=== PATIENT | female | born 1975 | race Caucasian/White ===

== ENCOUNTER 2025-02-05 08:56 | Outpatient (REF) | payer BC, SELFPAY ==
--- NOTE | 2025-02-05 | EEG_ITS ---
This is a 16 channel EEG with an EKG lead. Patient is reported awake during the tracing. Background EEG rhythm is low amplitude fast with no obvious asymmetry or paroxysmal tendency. Photic stimulation does not produce any significant abnormality. Hyperventilation is unremarkable. No sharp wave spikes or paroxysmal tendency noted. Cardiac lead does not reveal any significant abnormality. Impression: Unremarkable EEG. [facility]
--- OUTSIDE RECORDS SUMMARY | 2025-02-05 09:08 | XMS_ITS | Encounter Summary ---
Author Organization [facility] Address [address] [place] [address] Care Team Providers Care Cook Dessert Name Role Phone Jose Reed MD Primary Care Provider Torie lomeli Encounter Details Date Type Department Care Team (Latest Contact Info) Description 08/21/[address] [facility] [address] [place] [address] [address] [place] [address] Gregorio Brandon MD [address] [place], [place] [id number] Encounter for laboratory testing for COVID-19 virus Social History Tobacco Use Types Packs/Day Years Used Date Smoking Tobacco: Never Smokeless Tobacco: Never Alcohol Use Standard Drinks/Week Comments Yes 0 (1 standard drink = 0.6 oz pur e alcohol) Occasional Comments No Sex and Gender Information Value Date Recorded Sex Assigned at Not on file Legal Sex Female 2:49 PM EST Gender Identity Not on file Sexual Orientation Not on file documented as of this encounter Plan of Treatment Not on file documented as of this encounter Procedures Procedure Name Priority Date/Time Associated Diagnosis Comments COVID-19 (SARS-COV-2) - SEMA4 LAB Routine 08/21/2020 12:38 PM EST Encounter for laboratory testing for COVID-19 virus [ICD-10-CM] documented in this encounter Results * COVID-19 (SARS-COV-2) (SEMA4) (08/21/2020 12:38 PM EST) COVID-19 RT-PCR NOT-DETEC PJ Not-Detec pj 08/22/2020 4:51 PM EST [facility] Comment:Interpretation: The viral RNA was not detected, making the COVID-19 diagnosis less likely. Clinical correlation is highly recommended.Final report signed by Navarro Rojas, Ph.D., Laboratory DirectorTests performed at [facility] Nasopharyngeal swab / Unknown 08/21/2020 12:38 PM EST 08/21/2020 12:38 PM EST Narrative [facility] - 08/22/2020 4:51 PM EST Performed by [facility] [address] [place] [address], CLIA# [id number] and [place] License# [id number] us Gregorio Brandon MD MICROBIOLOGY - GENERAL ORDER BELLE Final Result [facility] documented in this encounter Visit Diagnoses Diagnosis Encounter for laboratory testing for COVID-19 virus documented in this encounter Care Teams Cook Dessert Relationship Specialty Start Date End Date Jose Reed MD PCP - General 07/01/19 documented as of this encounter
--- OUTSIDE RECORDS SUMMARY | 2025-02-05 09:09 | XMS_ITS | Data Portability ---
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 Plan of Treatment Reminders Order Date Submit Date Provider Last Modified By Organization Details Last Modified Time Details Appointments None recorded. Lab cytology report, thin prep, smear or scraping, cervical or vaginal 2023 024 URSULA [facility] (Centralized Electronic Ordering - All Locations), Patient Can Go To The Location Of Their Choice, [id number] 4 18:05:47 hemoglobi n, gastroint estinal, stool 2023 024 elie In-Office Order, Internal Use Only DO Not Attach Compendium DO Not Attach Compendium, Do Not Delete/merge, [id number] 11:59:09 biopsy, vulva 2019 020 obed [facility], Cytopathology Service, [address] [place] [address], [id number], 0 07:12:39 pap test, thinprep, cervical 2019 020 obed [facility], Cytopathology Service, [address] [place] [address], [id number], 0 07:32:46 fecal occult blood, stool 2019 020 obed In-Office Order, Internal Use Only DO Not Attach Compendium DO Not Attach Compendium, Do Not Delete/merge, [id number] 07:32:46 pap test, thinprep, cervical 2018 019 [facility], Cytopathology Service, [address], [place], [address], 9 16:55:37 fecal occult blood, stool 2018 019 obed In-Office Order, Internal Use Only DO Not Attach Compendium DO Not Attach Compendium, Do Not Delete/merge, [id number] 07:33:37 Referral urologist referral 2023 024 obed Reed MD, [address] [facility], [facility] [address], [place], [address], 5 07:30:14 Procedures biopsy, vulva (PROC) 2019 020 obde In-Office Order, Internal Use Only DO Not Attach Compendium DO Not Attach Compendium, Do Not Delete/merge, [id number] 07:21:18 Surgeries None recorded. Imaging None recorded. Medication Orders None recorded. Patient TargetsNo targets recorded. Patient Instructions Encounter Date Encounter Id Patient Instructions Last Modified By Organization Details Last Modified Time 08/22/2018 [id number] She is here for annual exam. She had her Paragard removed last year due to nausea with menses. Since removing the Paragard the nausea is fully resolved. Menses are regular, moderate to heavy flow. Condoms for control. He is going to have a vasectomy. She has a past history of triple negative breast cancer. _ Noite from 2018: She is here for annual exam, notes she has been having some mild nausea when she has menses for the past several months, though she can eat and has not vomited. Menses are regular. prior note: Additional note for complaint of nause with menses, separate from the annual exam: She had breast cancer triple negative in 2007, had bilateral mastectomy with implants in 2013 changed out. she is overdue to have her Paragard removal. She did get while taking depo provera correctly, in 2001. RX called in for IUD removal. ____ She appears to be doing well. Strongly advised to jael wiliight away and get his vasectomy set up, she is aware it is very important she not get . She is advised to get 1500 mg of calcium daily into her diet and supplements combined. We discussed the benefits of adequate vitamin D supplementation to at least 400 units daily, daily aerobic exercise of 30 minutes, and stress reduction. Monthly self breast exam was taught, and stressed, and is advised to call if she discovers any new mass in the breast. Seat belt use for herself and passengers advised. The significant health benefits of becoming and remainig fit, with an optimal BMI, were also discussed. We discussed the potential reduction in chronic discomfort, the diminished risks of hypertension, diabetes, and heart disease with the proper weight management, and improved mobility as she ages. Strategies to reach and maintain her target weight wer discussed in detail, all questions answered. 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 Menses are regular. Partner has a vasectomy now. Seh has had generalized pain in ehr legs, knees, etc. Her DILLON was elevated. She saw a oil dispenser in [place] and she didn't think it was anything specific but she is going to go for vascular testing. Note from 2019: She is here for annual exam. She had her Paragard removed last year due to nausea with menses. Since removing the Paragard the nausea is fully resolved. Menses are regular, moderate to heavy flow. Condoms for control. He is going to have a vasectomy. She has a past history of triple negative breast cancer. She appears to be doing well. She is advised to get 1500 mg of calcium daily into her diet and supplements combined. There is a health benefit with adequate vitamin D supplementation to at least 400 units daily, daily aerobic exercise of 30 minutes, and stress reduction. Monthly self breast exam was taught, and stressed, and is advised to call if she discovers any new mass in the breast. Seat belt use for herself and passengers are advised. There are significant health benefits of becoming and remainig fit, with an optimal BMI. There is a potential reduction in chronic discomfort, diminished risks of hypertension, diabetes, and heart disease with the proper weight management. With a recommended BMI there can be improved mobility as she ages. Strategies to reach and maintain her target weight were discussed in detail. Not available 09/23/2019 11:35:52 02/16/2020 [id number] vulvar biopsy education Not available 02/16/2020 15:47:42 She is here for removal of a large, polypoid fleshy mass of the vulva which is swollen and tender. the mass was removed, it required 2 sutures, was friable. Post procedure care discussed. Not available 02/16/2020 15:48:11 05/20/2024 [id number] learning about healthy weight Not available 05/20/2024 11:06:12 Stress Incontinence: Care Instructions Not available 05/20/2024 11:06:12 She is here for annual, has not been here in 4 years. History of bilateral mastectomy for triple negative breast cancer. She was BRCA negative in 2007 but has not had additional panel done. Menses irregular, LMP 2 to 3 months ago. Partner vasectomy. 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 Menses are regular. Partner has a vasectomy now. Can has had generalized pain in ehr legs, knees, etc. Her DILLON was elevated. She saw a oil dispenser in [place] and she didn't think it was anything specific but she is going to go for vascular testing. She has new onset incontinence, refer to urology, is not in menopause yet. Advised to consider getting additional hereditary cancer testing panel, she will consider. She appears to be doing well. Monthly self breast exam was taught, and stressed, and is advised to call if she discovers any new mass in the breast. Not available 05/20/2024 11:08:13 12/09/2024 [id number] menopause education Not kahlil ilable 12/09/2024 11:48:48 herbal products for menopause education Not available 12/09/2024 11:48:48 She is here dinah use she feels she will lose her job in 2 weeks because her ADHD and perimenopause issues are causing her poor job performance. Menses are irregular every 1 to 3 months. Note from 04/2024: She is here for annual, has not been here in 4 years. History of bilateral mastectomy for triple negative breast cancer. She was BRCA negative in 2007 but has not had additional panel done. Menses irregular, LMP 2 to 3 months ago. Partner vasectomy. The issues of perimenopause were discussed at length. She is aware that her menses will become erratic, and she may miss menses more frequently. We discussed the possible symptoms of hot flashes, night sweats, insomnia, iritability, short term memory issues, and the possibility of developing anxiety or panic attacks. We reviewed why this occurs, on a physiologic basis, as her estrogen levels diminish. We discussed ways to diminish the symptoms, including avoidance of caffeine and alcohol, cooler temperature rooms, and wearing open and loose weave absorbant clothing, or nothing at all, at night. We touched on the social and life issues that can arise at this time due to the hormonal instability. We discussed ways to manage the symptoms with herbal therapy. The use of black cohash, specifically Remifemin, is discussed, and she is advised that she must take it twice a day for a month prior to trying to asses whether there is any benefit, as it takes a month to begin to notice improvement. We discussed HRT but that with her past history of grade 3 breast cancer she should not take HRT, and why. Face to face discussion, chart review and coordination of care: 25 minutes Not available 12/09/2024 11:51:32 Reason for Referral Urologist Referral for Urina ry incontinence Referring Physician: Shruthi Arcos, Gynecology, Encounter Date: 05/20/2024 Results Created Date Observation Date Name Description Value Unit Range Abnormal Flag Note LastModifiedBy Organization Detail LastModifiedTime 09/23/19 20 09/23/2019 fecal occul t blood , stool Occult Blood negati ve Not Available In-Office Order Internal Use Only DO Not Attach Compendium DO Not Attach Compendium, Do Not Delete/merge, [id number] 09/23/2019 11:08:31 08/22/19 19 08/22/2018 fecal occul t blood , stool Occult Blood negati ve Not Available In-Office Order Internal Use Only DO Not Attach Compendium DO Not Attach Compendium, Do Not Delete/merge, [id number] 08/22/2018 10:11:10 08/22/19 19 08/22/2018 pap, LB [id number] ThinP rep Pap, Image d: NEGAT PRATIBHA FOR SQUAM OUS INTRA EPITH ELIAL DEDRICK Talamantes AND JEN PALOMARES . Thu mercado , CT( CP) (Case elect hussain collins josh d 08 25 2018) ADEQU ACY: Satis facto ry Endoc ervic al/tr ansfo rmati on zone compo nent absen t. SOURC E: ThinP rep Pap HPV IF ASCUS , Cervi jael, Image d CLINI JAEL INFOR MATIO N: HPV If Diagn osis of ASCUS . LPS neg, z12.4 Not Available [facility], Cytopathology Service [address] [place], [address], 08/25/2018 16:55:36 09/23/19 20 09/23/2019 pap, [id number] ThinP rep Pap, Image d: NEGAT PRATIBHA FOR SQUAM OUS INTRA EPITH ELIAL LESIO N AND MALIG MARIELLE . Thu Leivaur a , CT( CP) (Case elect hussain collins josh d 09 25 2019) ADEQU ACY: Satis facto ry Endoc ervic al/tr ansfo rmati on zone compo nent prese nt. SOURC E: ThinP rep Pap HPV IF ASCUS , Cervi jael, Image d CLINI JAEL INFOR MATIO N: HPV If Diagn osis of ASCUS . LPS NEG [Z12. 4, Z01.4 19] Not Available [facility], Cytopathology Service [address] [place], [address], 09/25/2019 13:20:59 02/16/20 20 02/16/2020 biops y, vulva (PROC ) surgicalcase Skin, vulva , local excis ion (poly poid lesio n): -FIBR OEPIT IVY L BOO AL POLYP . Chay hutchinson M.D. , Patho logis t (Case elect hussain collins josh d 02 18 2020) Pre-O p/Cli nical Diagn osis: VULVA R BIOPS Y/SKI N TAG ICD-1 0: L29.2 : PRURI TUS VULVA E Speci men and Site: VULVA -BIOP SY Gross Descr iptio n: Label ed vulv a biops y . Recei dipti in forma tony is a 9 x 5 x 4 mm rubbe ry, white -pink , polyp oid porti on of skin with fibro us, white to hyper emic cut surfa cristóbal. The shave d base is inked viole t. The speci men is bisec fabienne and submi tted in entir ety in one casse tte, two piece s, multi ple level s on one slide . KR Physi cians : NICO VELEZ/ [phone] Not Available [facility], Cytopathology Service [address] [facility], [place], [address], 02/18/2020 17:56:04 05/20/2005/26/2024 IGP, RFX APTIM A HPV ASCU diagnosis: Jaime MCKINNON FOR INTRA EPITH ELIAL LESJEAN N OR JEN PALOMARES . Not Available [facility] ([facility]) [address] [place], [address], 05/26/2024 18:05:46 05/20/2005/26/2024 IGP, RFX APTIM A HPV ASCU specimen adequacy: Jaime reddy Satis facto aminata for evalu ation . Not Available [facility] ([facility]) [address] [place], [address], 05/26/2024 18:05:46 05/20/2005/26/2024 IGP, RFX APTIM A HPV ASCU clinician provided ICD10: Jaime reddy Z01.4 19 Not Available [facility] ([facility]) [address] [place], [address], 05/26/2024 18:05:46 05/20/2005/26/2024 IGP, RFX APTIM A HPV ASCU performed by: Jaime High , Laurent reddy (ASCP ) Not Available [facility] ([facility]) [address] [place], [address], 05/26/2024 18:05:46 05/20/2005/26/2024 IGP, RFX APTIM A HPV ASCU . . Not Available [facility] ([facility]) [address] [place], [address], 05/26/2024 18:05:46 05/20/2005/26/2024 IGP, RFX APTIM A HPV ASCU note: Commen t The Pap smear is a scree john test desig manuel to aid in the detec tion of arnulfo ligna nt and malig nant condi tions of the uteri ne cervi x. It is not a diagn ostic proce dure and shoul d not be used as the sole means of detec ting cervi jael cance r. Both false -posi tive and false -nega tive repor ts do occur . Not Available [facility] ([facility]) [address], [place], [address], 05/26/2024 18:05:46 05/20/2005/26/2024 IGP, RFX APTIM A HPV ASCU test methodology: Commen t This liqui d based ThinP rep(R ) pap test was scree manuel with the use of an image guide d syste m. Not Available [facility] ([facility]) [address], [place], [address], 05/26/2024 18:05:46 05/20/2005/26/2024 IGP, RFX APTIM A HPV ASCU . Commen t The HPV DNA refle x crite arley were not met with this speci men resul t there fore, no HPV testi ng was perfo rmed. Not Available [facility] ([facility]) [address], [place], [address], 05/26/2024 18:05:46 05/21/2005/21/2024 hemog lobin , gastr ointe maury l, stool Occult Blood negati ve Not Available In-Office Order Internal Use Only DO Not Attach Compendium DO Not Attach Compendium, Do Not Delete/merge, [id number] 05/20/2024 10:46:54 Result Notes None recorded. Problems Name Problem SNOMED Code Status Onset Date Resolution Date Notes Provider Name and Address Organization Details Recorded Time Abdominal pain 66224039 Active Shruthi Arcos MD [address], [place], [address], [place] [facility], 5 16:42:03 Personal history of primary malignant neoplasm of breast 131299855 Active 2007 triple negative Shruthi Arcos MD [address], [place], [address], [place] [facility], 5 16:28:30 Family problems 572924751 Active 2015 2016- her 13 year old daughter had a benign tumor of the jaw and had her entire lower left jaw removed and a fibula transplan t. Shruthi Arcos MD [address], [place], [address], [place] [facility], 8 10:54:56 Nausea 702031760 Active 2017 Shruthi Arcos MD [address], [place], [address], [place] [facility], 8 10:44:27 Premenstrua l dysphoric disorder 470522 Active 2017 Shruthi Arcos MD [address], [place], [address], [place] [facility], 8 09:51:50 Urinary incontinenc e 502310040 Active 2023 Shruthi Arcos MD [address], [place], [address], [place] [facility], 4 11:05:22 Problem Notes None recorded. Procedures Surgical History Date Name Laterality Status Provider Name and Address Organization Details Recorded Time 02/16/20 20 Vulvar Biopsy completed Shruthi Arcos MD [address], [place], [address], [place] [facility], 02/16/2020 15:49:19 08/27/19 18 IUD Removal completed Shruthi Arcos MD [address], [place], [address], [place] [facility], 08/27/2017 11:16:45 07/29/19 08 Mastectomy completed Shruthi Arcos MD [address], [place], [address], [place] [facility], 05/22/2016 09:15:01 07/29/19 08 Breast Implants completed Patricia Aliciawor [place] - [facility], 03/07/2015 14:53:24 07/29/19 04 Appendectomy completed Patricia Meckennyywor [place] [facility], 03/07/2015 14:53:24 07/29/18 91 Tonsillectomy completed Patricia Meckennyywor [place] [facility], 03/07/2015 14:53:24 Imaging Results None recorded. Procedure Notes None recorded. Medical Equipment None Reported. Allergies Allergen ID Allergen Name Allergen Category Reaction Reaction Severity Criticality Documentation Date Start Date Code Code System Note Provider Name and Address Organization Details Recorded Time 77623 Product containin g penicilli n (product) medicatio n rash Not available Not available 03/07/2015 48254 8001 SNOMED Patricia Meczywor null [place] [facility], 5 14:53:24 34183 codeine medicatio n vomiting Not available Not available 03/07/2015 2670 RxNorm Patricia Meczywor null [place] [facility], 5 14:53:24 52980 acetamino phen / oxycodone medicatio n vomiting Not available Not available 03/07/2015 78906 3 RxNorm Patricia Meczywor null, [place] [facility], 5 14:53:24 Medications Name Sig Start Date Stop Date Status Note LastModified by Organization Details LastModified Time methocarbamo l 500 mg tablet 05/20 completed Not Available Not Available Not Available azithromycin 250 mg tablet 08/22 completed Not Available Not Available Not Available citalopram 10 mg tablet TAKE ONE TABLET BY MOUTH EVERY DAY 12/09 completed Not Available Not Available Not Available methylphenid ate 10 mg tablet TAKE ONE TABLET BY MOUTH TWICE A DAY active Not Available Not Available No t Available meperidine 50 mg tablet active Not Available Not Available Not Available dextroamphet amine-amphet amine 10 mg tablet TAKE ONE TABLET BY MOUTH EVERY DAY 12/09 completed Not Available Not Available Not Available propranolol ER 60 mg capsule,24 hr,extended release TAKE ONE CAPSULE BY MOUTH EVERY DAY 12/09 completed Not Available Not Available Not Available methylphenid ate ER 54 mg tablet,exten ded release 24 hr 12/24 completed Not Available Not Available Not Available ciprofloxaci n 250 mg tablet active Not Available Not Available Not Available tretinoin 0.05 % topical cream 05/22 completed Not Available Not Available Not Available sulfamethoxa zole 800 mg-trimethop rim 160 mg tablet 12/24 completed Not Available Not Available Not Available fluorouracil 5 % topical solution 12/24 completed Not Available Not Available Not Available dextroamphet amine-amphet amine 30 mg tablet 05/22 completed Not Available Not Available Not Available meloxicam 7.5 mg tablet 05/20 completed Not Available Not Available Not Available citalopram 20 mg tablet TAKE 1 TABLET BY MOUTH DAILY active Not Available Not Available No t Available amitriptylin e 25 mg tablet 05/22 completed Not Available Not Available Not Available modafinil 200 mg tablet TAKE ONE TABLET BY MOUTH ONCE A DAY 12/09 completed Not Available Not Available Not Available lorazepam 0.5 mg tablet active Not Available Not Available Not Available triamcinolon e acetonide 0.025 % topical cream 05/20 completed Not Available Not Available Not Available dextroamphet amine-amphet amine 20 mg tablet TAKE ONE TABLET BY MOUTH TWICE A DAY 05/20 completed Not Available Not Available Not Available ibuprofen 400 mg tablet 08/22 completed Not Available Not Available Not Available fluoxetine 10 mg capsule Take 1 capsule every day by oral route. 08/22 completed Not Available Not Available Not Available omeprazole 20 mg capsule,mahnaz yed release active Not Available Not Available Not Available codeine 10 mg-guaifenes in 100 mg/5 mL oral liquid TAKE 10 ML (2 TEASPOON FULS) BY MOUTH AT BEDTIME NEEDED FOR COUGH. 09/23 completed Not Available Not Available Not Available diclofenac sodium 50 mg tablet,delay ed release 05/20 completed Not Available Not Available Not Available lorazepam 1 mg tablet TAKE ONE TABLET BY MOUTH EVERY DAY NEEDED FOR ANXIETY 05/20 completed Not Available Not Available Not Available Vitamin D2 1,250 mcg (50,000 unit) capsule active Not Available Not Available Not Available ondansetron 4 mg disintegrati ng tablet active Not Available Not Available No t Available fluoxetine 20 mg capsule Take 1 capsule every day by oral route. 08/22 completed Not Available Not Available Not Available sertraline 50 mg tablet TAKE 1 AND 1/2 TABLET BY MOUTH ONCE DAILY. 05/20 completed Not Available Not Available Not Available loratadine 10 mg tablet TAKE ONE TABLET BY MOUTH EVERY DAY 09/23 completed Not Available Not Available Not Available naproxen 500 mg tablet TAKE ONE TABLET BY MOUTH TWICE A DAY WITH MEALS 09/23 completed Not Available Not Available Not Available modafinil 100 mg tablet TAKE ONE TABLET BY MOUTH TWICE A DAY 12/09 completed Not Available Not Available Not Available Amphetamine Salt Combo 20 mg tablet active Not Available Not Available Not Available Amphetamine Salt Combo 30 mg tablet 08/22 completed Not Available Not Available Not Available azithromycin 500 mg tablet Take 1 tablet every day by oral route for 3 days. 12/24 completed Not Available Not Available Not Available cyclobenzapr ine 5 mg tablet 08/22 completed Not Available Not Available Not Available bupropion HCl XL 300 mg 24 hr tablet, extended release TAKE ONE TABLET BY MOUTH EVERY MORNING active Not Available Not Available No t Available bupropion HCl XL 150 mg 24 hr tablet, extended release TAKE ONE TABLET BY MOUTH EVERY MORNING active Not Available Not Available No t Available calcium 09/23 completed Not Available Not Available Not Available Fish Oil 09/23 completed Not Available Not Available Not Available Vyvanse 70 mg capsule TAKE ONE CAPSULE BY MOUTH EVERY MORNING active Not Available Not Available No t Available Vyvanse 60 mg capsule TAKE ONE CAPSULE BY MOUTH EVERY MORNING 12/09 completed Not Available Not Available Not Available diclofenac 1 % topical gel APPLY ONE GRAM TO THE SKIN TWICE A DAY 05/20 completed Not Available Not Available Not Available Multi For Her active Not Available Not Available Not Available salicylic acid 27.5 % topical film-forming liquid 08/22 completed Not Available Not Available Not Available Vitals Date Recorded Body height Body mass index (BMI) Body weight Heart rate Systolic And Diastolic Provider Name and Address Organization Details Last Updated DateTime 08/22/2018 161.29 cm 36.6 kg/m2 78022.4 g 90 /min 126/67 mm[Hg] Patricia Malloy in [facility], 08/22/2018 10:09:12 Date Recorded Body weight Body mass index (BMI) Body height Heart rate Systolic And Diastolic Provider Name and Address Organization Details Last Updated DateTime 09/23/2019 038774.1 g 38.3 kg/m2 162.56 cm 80 /min 120/69 mm[Hg] Patricia Mcpherson [place] - [place] [facility], 09/23/2019 11:01:26 Date Recorded Body height Body mass index (BMI) Body weight Body temperature Heart rate Systolic And Diastolic Provider Name and Address Organization Details Last Updated DateTime 5 161.29 cm 44.5 kg/m2 976849. 49 g 97.3 [degF] 94 /min 153/79 mm[Hg] Patricia Mcpherson [place] [facility], 5 10:07:49 Date Recorded Body height Body temperature Body mass index (BMI) Body weight Heart rate Systolic And Diastolic Provider Name and Address Organization Details Last Updated DateTime 0 162.56 cm 98.1 [degF] 38.4 kg/m2 443371. 69 g 90 /min 123/77 mm[Hg] Patricia Mcpherson [place] - [place] [facility], 0 15:33:22 Date Recorded Body weight Body mass index (BMI) Body height Body temperature Heart rate Systolic And Diastolic Provider Name and Address Organization Details Last Updated DateTime 4 773746. 5 g 43.4 kg/m2 161.29 cm 97.9 [degF] 99 /min 143/63 mm[Hg] Patricia Mcpherson [place] [facility], 4 10:39:34 Social History Question Answer Notes LastModified by Organizat ion Details LastModified Time Tobacco Smoking Status Never Smoker Not Available [facility] 05/31/2020 03:19:41 How Many Years Have You Consumed Alcohol? 30 Information not available 05/20/2024 What Is Your Level Of Caffeine Consumption? Moderate [id number] Information not available 05/31/2020 In The 14 Days Before Symptom Onset, Have You Had Close Contact With A Laboratory-confirm ed COVID-19 While That Case Was Ill? No Information n ot available 05/20/2024 In The 14 Days Before Symptom Onset, Have You Had Close Contact With A Person Who Is Under Investigation For COVID-19 While That Person Was Ill? No Information not available 05/20/2024 Have You Been To An Area Known To Be High Risk For COVID-19? No Information not available 05/20/2024 What Type Of Diet Are You Following? REGULAR [id number] Information n ot available 05/31/2020 Which Illicit Or Recreational Drugs Have You Used? No [id number] Information not available 05/31/2020 Do You Reside In Or Have You Traveled To An Area Where Ebola Virus Transmission Is Active? No [id number] Information not available 05/31/2020 Education 4 Year College Information not available 03/07/2015 What Is The Highest Grade Or Level Of School You Have Completed Or The Highest Degree You Have Received? [id number] Information not available 05/20/2024 Who Is Your Employer? [employer] Information not available 05/20/2024 How Many Days In The Past Year Have You Had A Heavy Drinking Consumption (4+ Female, 5+ Male)? 10 Information no t available 09/23/2019 Are There Any Guns Present In Your Home? Yes Locked Information not available 05/20/2024 High Number Of Sexual Partners Yes Information not available 05/22/2016 To Which Gender Do You Self-identify? Female Information n ot available 05/22/2016 Marital Status Informatio n not available 03/07/2015 What Was The Date Of Your Most Recent Tobacco Screening? 12/09/2024 Information not available 12/09/2024 What Is Your Relationship Status? Information not available 05/20/2024 Are You Sexually Active? Yes [id number] Information not available 05/31/2020 How Much Tobacco Do You Smoke? No [id number] Information not available 05/31/2020 General Stress Level High Information not available 08/22/2018 Have You Recently (within The Last 12 Weeks, Or During A Current ) Traveled To Or Lived In A Zika-affected Area? No Information not available 05/22/2016 How Many Days In The Past Year Have You Consumed 4 Or More Drinks? 4 Information not available 05/20/2024 Sex: Female Functional Status Question Answer Note LastModified by Organizat ion Details LastModified Time Do you use any illicit or recreational drugs? No Information not available 05/20/2024 Do you or have you ever used any other forms of tobacco or nicotine? No Information not available 12/09/2024 What is your level of alcohol consumption? Occasional [id number] Information not available 05/31/2020 Do you or have you ever used smokeless tobacco? Never used smokeless tobacco [id number] Information not available 05/31/2020 Are you currently employed? 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 Information not available 05/20/2024 Do you or have you ever used e-cigarettes or vape? Never used electronic cigarettes [id number] Information not available 05/31/2020 What is your exercise level? Occasional [id number] Information not available 05/31/2020 Mental Status Question Answer Note LastModified by Organization D etails LastModified Time Do you feel stressed (tense, restless, nervous, or anxious, or unable to sleep at night)? [id number] Information not available 05/20/2024 Family History Relationship Description Onset Age of this Age Resolved Age Notes LastModified by Organization Details LastModified Time Maternal Uncle Malignant tumor of breast male Not available 03/30 10:21:35 Mother Hypercholest erolemia Not available 03/30 10:21:35 Mother Hypertensive disorder Not available 03/30 10:21:35 Mother Problem thyroi d..her whole family had this Not available 04/26/2015 10:21:35 Mother Malignant neoplasm of lung tmeczywor Not available 2023 10:42:20 Daughter Problem 13 tumor in jaw but was benign . tmeczywor Not available 08/22/2017 10:12:52 Medical History Condition Response Anesthesia complications Y High Blood Pressure N Candidate for MyRisk panel N Autoimmune Condition Y Depression N Lung Disease N Defects or Inherited Disease N History of Ovarian Cancer N BRCA testing in past Y Anxiety Disorder N Arthritis Y Infertility N History of Cancer N Endometriosis N Kidney or Bladder Problems N Thyroid Problems N GI Problems Y Anemia N History of Breast Cancer Y KEL exposure N Osteopenia N Psychiatric Illness N Diabetes N Headaches or Migraines N Asthma N Hepatitis N Heart Disease N Hypertension N Osteoporosis N Gynecological History Statement/Question Response Dysmenorrhea N Flow Heavy Frequency of Cycle (Q days) 21 Date of LMP 10/07/2024 Menses Monthly Y Duration of Flow (days) 6 Most Recent Mammogram Current Control Method Partner Vas ectomy Age at Menarche 13 Age at First Child 25 Hormone Replacement Therapy N Obstetrics History GPAL:G 4 P 2 0 2 2 Type Value Full Term 2 Spontaneous 2 Living 2 Total 4 Immunizations Vaccine Type Date Status Note Provider Nam e and Address Organization Details Recorded Time COVID-19, mRNA, LNP-S, PF, 100 mcg/0.5mL dose or 50 mcg/0.25mL dose 2 completed PatriciaJENI Rincon in [facility], 05/20/2024 10:38:58 Tdap 7 completed Patricia Meczywor JENI brand in [facility], 05/20/2024 10:38:58 Influenza, split virus, trivalent, preservative 0 completed Patricia Meczywor sunday MA Diaz Malloy in [facility], 05/20/2024 10:38:59 Influenza, split virus, trivalent, preservative 2 completed Patricia JENI Chisholm in [facility], 05/20/2024 10:38:59 Influenza, split virus, trivalent, preservative 8 completed JENI Garner in [facility], 05/20/2024 10:38:59 Td (adult), 2 Lf tetanus toxoid, preservative free, adsorbed 7 completed JENI Garner in [facility], 05/20/2024 10:38:59 Past Encounters Encounter ID Performer Location Encounter Start Date Encounter Closed Date Diagnosis/Indication Diagnosis SNOMED-CT Code Diagnosis ICD10 Code Diagnosis Note [id number] MD SHRUTHI Hyatt MD [address] [place] [address],[address] [address] 03/07/2015 14:30:28 03/08/2015 08:55:54 Abdominal pain [id number] MD SHRUTHI Hyatt MD [address] [place] [address], [address] [address] 04/26/2015 10:00:05 04/26/2015 11:44:08 Specialized medical examination [id number] Screening for malignant neoplasm of rectum [id number] MD SHRUTHI Hyatt MD [address] [place] [address],[address] [address] 05/22/2016 08:49:53 05/22/2016 11:40:16 Specialized medical examination 63730435 Z01.419 Screening for malignant neoplasm of rectum 487944325 Z12.12 Screening mammography 24 442685 Z12.31 Personal h istory of primary malignant neoplasm of breast 469699519 Z85.3 [id number] MD SHRUTHI Hyatt MD [address] [place] [address], [address] [place] [address] 08/22/2017 09:46:21 08/22/2017 12:59:50 Specialized medical examination 04012745 Z01.419 Screening for malignant neoplasm of rectum 292596422 Z12.12 Personal h istory of primary malignant neoplasm of breast 903835752 Z85.3 [facility] [id number] R11.0 [id number] MD SHRUTHI Hyatt MD [address] [place] [address],[address] [facility] [place] [address] 08/27/2017 10:43:14 08/27/2017 11:29:49 Removal of intrauterine device 06049751 Z30.432 [id number] MD SHRUTHI Hyatt MD [address] [place] [address],[address] [facility] [facility] [address] 12/24/2017 10:07:23 12/24/2017 12:14:53 Premenstrual dysphoric disorder 453166 F32.81 Personal h istory of primary malignant neoplasm of breast 596211752 Z85.3 Family problems 88974246 4 Z63.79 [id number] MD SHRUTHI Hyatt MD [address] [place] [address], [place] [address] 03/06/2018 09:28:17 03/06/2018 11:15:42 Premenstrual dysphoric disorder 861069 F32.81 Personal h istory of primary malignant neoplasm of breast 737700346 Z85.3 Family problems 83830258 4 Z63.79 [id number] MD SHRUTHI Hyatt MD [address] [place] [address], [address] [facility] [place] [address] 08/22/2018 09:32:17 08/22/2018 13:26:06 Specialized medical examination 04917354 Z01.419 Screening for malignant neoplasm of rectum 376954237 Z12.12 Personal h istory of primary malignant neoplasm of breast 443925633 Z85.3 [id number] MD SHRUTHI Hyatt MD [address] [place] [address], [place] [address] 09/23/2019 10:44:40 09/24/2019 12:51:04 Specialized medical examination 15271374 Z01.419 Screening for malignant neoplasm of rectum 921021466 Z12.12 [id number] MD SHRUTHI Hyatt MD [address] [place] [address],[place] [address] 02/16/2020 15:28:59 02/16/2020 15:57:02 Pruritus of vulva 67010812 L29.2 [id number] MD SHRUTHI Hyatt MD [address] [facility],[address] [place] [address] 05/20/2024 10:35:19 05/20/2024 11:58:53 Specialized medical examination 42001074 Z01.419 Screening for malignant neoplasm of rectum 601264028 Z12.12 Personal h istory of primary malignant neoplasm of breast 381193769 Z85.3 Urinary incontinence 165 300813 R32 [id number] MD SHRUTHI Hyatt MD [address] [facility],[address] [place] [id number] 12/09/2024 10:03:39 12/09/2024 11:54:22 Menopausal symptom 43441281 N95.1 Health Concerns Section Related Observation LastModified by Organization Detai ls LastModified Time None Recorded Concern Status LastModified by Organization Details LastModified Time None Recorded Advance Directives Directive None Recorded Payers Insurance Date Sequence Insurance Name Policy Number Policy Fuentes Covered Member ID Fuentes Member ID Guarantor Name 09/23/2019 1 [facility]: [employer] [place] [employer] (O) [id number] Mandi Jha [id number] Mandi Jha 12/08/2024 1 [facility]: [employer] (O) [id number] Tommy Jha [id number] Mandi Jha Notes Date Note Type Note Provider Name and Address Organization Details Recorded Time 08/22/2018 text/html She is here for annual exam. She had her Paragard removed last year due to nausea with menses. Since removing the Paragard the nausea is fully resolved. Menses are regular, moderate to heavy flow. Condoms for control. He is going to have a vasectomy. She has a past history of triple negative breast cancer. Noite from 2018: She is here for annual exam, notes she has been having some mild nausea when she has menses for the past several months, though she can eat and has not vomited. Menses are regular. ____ prior note: Additional note for complaint of nause with menses, separate from the annual exam: She had breast cancer triple negative in 2007, had bilateral mastectomy with implants in 2013 changed out. she is overdue to have her Paragard removal. She did get while taking depo provera correctly, in 2001. RX called in for IUD removal. 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 Menses are regular. Partner has a vasectomy now. Note from 2019: She is here for annual exam. She had her Paragard removed last year due to nausea with menses. Since removing the Paragard the nausea is fully resolved. Menses are regular, moderate to heavy flow. Condoms for control. He is going to have a vasectomy. She has a past history of triple negative breast cancer. Shruthi Arcos MD [address] [facility] [address], [place], [address], [place] [facility], 09/24/2019 12:21:19 02/16/2020 text/html She is here for removal of a large, polypoid fleshy mass of the vulva which is swollen and tender Shruthi Arcos MD [address], [place], [address], [place] [facility], 02/16/2020 15:50:08 05/20/2024 text/html She is here for annual, has not been here in 4 years. History of bilateral mastectomy for triple negative breast cancer. She was BRCA negative in 2007 but has not had additional panel done. 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 Menses are regular. Partner has a vasectomy now.Can has had generalized pain in ehr legs, knees, etc. Her DILLON was elevated. She saw a oil dispenser in [place] and she didn't think it was anything specific but she is going to go for vascular testing. Shruthi Arcos MD [address], [place], [address], [place] [facility], 05/20/2024 11:09:41 12/09/2024 text/html She is here dinah use she feels she will lose her job in 2 weeks because her ADHD and perimenopause issues are causing her poor job performance. Menses are irregular every 1 to 3 months. ____ Note from 04/2024: She is here for annual, has not been here in 4 years. History of bilateral mastectomy for triple negative breast cancer.She was BRCA negative in 2007 but has not had additional panel done.Menses irregular, LMP 2 to 3 months ago. Partner vasectomy. Shruthi Arcos MD [address], [place], [address], [place] [facility], 12/09/2024 11:51:44 OBGyn Episode No OBEpisode recorded.
--- OUTSIDE RECORDS SUMMARY | 2025-02-05 09:09 | XMS_ITS | Clinical Summary ---
Author Organization [facility] Address [address] [place] [phone] Phone Care Team Providers Care Facilities Operations Technician Name Role Phone Jose Reed MD Primary Care Provider [phone] Allergies Active Allergy Reactions Criticality Noted Date Comments Codeine 07/10/2005 Oxycodone-Acetaminophen Nausea And Vomiting Medium 03/2013 Penicillin V Potassium 07/10/2005 Medications propranolol LA (INDERAL LA) 60 mg 24 hr capsule TAKE ONE CAPSULE BY MOUTH EVERY DAY 4 Active lisdexamfetamin e (Vyvanse) 70 mg capsule TAKE ONE CAPSULE BY MOUTH EVERY MORNING 4 Active buPROPion XL (WELLBUTRIN XL) 300 mg 24 hr tablet TAKE ONE TABLET BY MOUTH EVERY MORNING 4 Active citalopram (CeleXA) 20 mg tablet TAKE ONE TABLET BY MOUTH EVERY DAY 4 Active buPROPion XL (WELLBUTRIN XL) 150 mg 24 hr tablet TAKE ONE TABLET BY MOUTH EVERY MORNING 3 Active triamcinolone (KENALOG) 0.5 % cream Apply 1 Squirt topically 2 times daily. 3 Active ibuprofen (ADVIL,MOTRIN) 800 mg tablet Take 1 tablet (800 mg total) by mouth every 8 (eight) hours if needed for mild pain or moderate pain. 90 tablet 5 Active cyclobenzaprine (FLEXERIL) 5 mg tablet Take 1 tablet (5 mg total) by mouth 3 (three) times a day if needed for muscle spasms. 30 tablet Active Active Problems Problem Noted Date Diagnosed Date Dyslipidemia 01/12/2025 Morbid obesity with BMI of 4 0.0-44.9, adult ([facility] V24, [facility] V28) 07/20/2024 MARIE (obstructive sleep apnea) 11/18/2022 Venous insufficiency (chronic) (peripheral) 01/27 Overview (07/20/2024): Follows with Vascular (yoseph) Depression 12/04/2018 Osteoarthritis of right knee 12/04/2018 ADHD (attention deficit hyperactivity disorder) 06/19/2013 SOB (shortness of breath) 01/19/2013 Allergic rhinitis 12/13/2005 Encounters Date Type Department Care Team Description 02/04/2025 Telephone Adult Medicine [address] [phone] Jose Reed MD Referral (Neurology Insurance Referral) 01/12/2025 4:30 PM EDT Office Visit Adult Medicine [address] [phone] Scarlet Gabriel, FEATHER BALER Morbid obesity with BMI of 40.0-44.9, adult ([facility] V24, [facility] V28) (Primary Dx); Other fatigue; MARIE (obstructive sleep apnea); Neck pain, acute; Dyslipidemia from Last 3 Months Immunizations Name Administration Dates Next Due Influenza trivalent, 0.5mL, preservative free (Fluarix; FluLaval; Fluzone) ages 6mo and older (Afluria) 3 years and older 05/20/2012,04/29/2010,06/29/2008 Influenza trivalent, with pr eservative (Fluzone; Afluria) 6mo and older 05/20/2012,04/29/2010,06/29/2008 Td Tetanus diptheria (Tdvax) 7yo and older 12/03 Tdap Tetanus diptheria acell ular pertussis (Boostrix; Adacel) 7yo and older 11/11/2006 Surgical History Surgery Date Site/Laterality Comments APPENDECTOMY PROCEDURE: HISTORICAL APPENDECTOMY MASTECTOMY 07/2007 PROCEDURE: HISTORICAL MASTECTOMY; COMMENT: bilateral, bilateral reconstructive surgery TONSILLECTOMY PROCEDURE: HISTORICAL TONSILLECTOMY APPENDECTOMY PROCEDURE: CO APPENDECTOMY OTHER SURGICAL HISTORY 12/09/2013 PROCEDURE: IMPLANT BREAST SILICONE/EQ ESOPHAGOGASTRODUODENOSCOPY 01/21/15 PROCEDURE: CO ESOPHAGOGASTRODUODENOSCOPY TRANSORAL DIAGNOSTIC; COMMENT: normal ESOPHAGOGASTRODUODENOSCOPY 07/07/15 Magali TEDDY PROCEDURE: CO ESOPHAGOGASTRODUODENOSCOPY TRANSORAL DIAGNOSTIC; COMMENT: normal Medical History Medical History Date Comments Allergic rhinitis, cause unspecified DX:Allergic rhinitis, cause unspecified Depression (emotion) DX:Depressi on (emotion) SOB (shortness of breath) 01/19/2013 DX:SOB (shortness of breath) Malignant neoplasm of breast (female), unspecified site 05/16/2007 DX:Malignant neoplasm of priscilla ast (female), unspecified site; COMMENT: BRCA Neg Osteoarthritis of right knee DX: Osteoarthritis of right knee Family History Medical History Relation Name Comments Hypertension Father Other: Other Maternal Grandfather ? luis fernando woods- in his 70s Thyroid disease Maternal Grandmother in her mid 50s of ovarian cancer Hypertension Mother elevated choles terol Thyroid disease Mother Multiple sclerosis Other nephew Other: Other Paternal Grandfather - age 85 ? cause Other: Other Paternal Grandmother at 93 ? cause Breast cancer Uncle 1 maternal uncle Other: etoh Uncle 2 in his ear ly 60s; paternal uncle Relation Name Status Comments Brother 1 Brother 2 Father Alive Maternal Grandfather Maternal Grandmother Mother Alive Other Paternal Grandfather Paternal Grandmother Sister Alive Uncle 1 Uncle 2 Social History Tobacco Use Types Packs/Day Years Used Date Smoking Tobacco: Never Smokeless Tobacco: Never Tobacco Cessation:Counseling Given: Not Answered Alcohol Use Standard Drinks/Week Comments Yes 0 (1 standard drink = 0.6 oz pur e alcohol) Housing Instability Answer Date Recorde d Are you worried that in the next 2 months you may not have stable housing? No 01/12/2025 Food Access & Nutrition Answer Date Rec orded Do you have access to a vari ety of food including fruits and vegetables? Yes 01/12/2025 Access to Healthcare Answer Date Record ed Within the last 3 months, ho w many times did you visit the emergency department for your medical care? 0 01/12/2025 Health Literacy Answer Date Recorded How often do you need to hav e someone help you when you read instructions, pamphlets, or other written material from your doctor or pharmacy? Never 01/12/2025 Caregiver: How often do you need to have someone help you when you read instructions, pamphlets, or other written material from your doctor or pharmacy? Not on file 01/12/2025 Financial Risk Answer Date Recorded How hard is it for you to pa y for the very basics like food, housing, medical care, and air conditioning / heating? Not very hard 01/12/2025 Transportation Answer Date Recorded Has the lack of transportati on kept you from meetings, work, or from getting things needed for daily living? No Has the lack of transportati on kept you from medical appointments or from getting medications? No 01/12/2025 Social Isolation Answer Date Recorded How often do you feel lonely or isolated from th ose around you? Never 01/12/2025 Food Risk Answer Date Recorded Within the past 12 months we worried whether our food would run out before we got money to buy more. Never true 01/12/2025 Within the past 12 months th e food we bought just didn't last and we didn't have money to get more. Never true 01/12/2025 Dependent Care Answer Date Recorded Do you need help finding or paying for care for your loved ones. For example, early childhood specialist or elderly care for an older adult? No 01/12/2025 Education Answer Date Recorded Do you think completing more education or training, like finishing a GED, going to college, or learning a trade, would be helpful for you? No 01/12/2025 Employment and Income Answer Date Recor ded During the last four weeks, have you been actively looking for work? No 01/12/2025 Living Situation Answer Date Recorded What is your living situation? 0 01/12/2025 Comments Unknown Sex and Gender Information Value Date Recorded Sex Assigned at Not on file Legal Sex Female 6:32 PM EST Gender Identity Not on file Sexual Orientation Not on file Obstetrics History Last Filed Vital Signs Vital Sign Reading Time Taken Comments Blood Pressure 130/74 01/12/2025 4:18 PM EDT Pulse 90 01/12/2025 4:18 PM EDT Temperature 36.1 C (97 F) 01/12/2025 4:18 PM EDT Respiratory Rate - - Oxygen Saturation 96% 01/12/2025 4:18 PM EDT Inhaled Oxygen Concentration - - Weight 117 kg (256 lb 14.4 oz) 01/12/2025 4:18 P M EDT Height 162.6 cm (5' 4.02 ) 01/12/2025 4:18 PM ED T Body Mass Index 44.07 01/12/2025 4:18 PM EDT Plan of Treatment Upcoming Encounters Date Type Department Care Team (Late st Contact Info) Description 03/23/2025 3:30 PM EDT Office Visit Adult Medicine [facility] [address] [place] [phone] Jose Reed MD [address] [place] [address] 08/26/2025 3:30 PM EST Consult Bariatric Surgery - [place] [address] [phone] Didier Marquez MD [address] [address] Health Maintenance Due Date Last Done Comments Hepatitis B Vaccines (1 of 3 - 19+ 3-dose series) 1993 Zoster Vaccines (1 of 2) 1993 Cervical Cancer Screening: Pap Smear 04/20/2017 04/20/2014, 04/20/2014 COVID-19 Vaccine (2 - Moderna risk series) 08/31/2021 08/03/2021 Colorectal Cancer Screening: Colonoscopy 06/30/2022 HIV Screening 06/30/2022 Pneumococcal Vaccine: 50+ Years (1 of 1 - PCV) 2024 Influenza Vaccine (#1) 2025 2, 05/20/2012, 04/29/2010, Additional history exists Depression Screening 01/12/2026 01/12/2025 Social Influencers of Health Screening 01/12/2026 01/12/2025 DTaP,Tdap,and Td Vaccines (3 - Td or Tdap) 12/03/2026 12/03/2016, 11/11/2006 Cholesterol Screening (Lipid Panel) 11/20/2027 11/19/2022 Hepatitis C Screening Completed 07/04/2000 HIB Vaccines Aged Out No longer eligi ble based on patient's age to complete this topic HPV Vaccines Aged Out No longer eligi ble based on patient's age to complete this topic Hepatitis A Vaccines Aged Out No long er eligible based on patient's age to complete this topic IPV Vaccines Aged Out No longer eligi ble based on patient's age to complete this topic MMR Vaccines Aged Out No longer eligi ble based on patient's age to complete this topic Meningococcal ACWY Vaccine Aged Out N o longer eligible based on patient's age to complete this topic Meningococcal B Vaccine Aged Out No l onger eligible based on patient's age to complete this topic RSV Immunization Patients Under 20 months Aged Out No longer eligible based on patient's age to complete this topic Varicella Vaccines Aged Out No longer eligible based on patient's age to complete this topic Procedures Procedure Name Priority Date/Time Associated Diagnosis Comments LIPID PANEL Routine 11/19/2022 HPV Routine 04/20/2014 HEPATITIS C SCREENING Routine 07/04/2000 from Last 3 Months or Most Recently Relevant to Health Maintenance Results * (ABNORMAL) Lipid panel (11/19/2022) [facility] LDL/HDL Ratio 4 0 - 4 Triglycerides 90 0 - 150 mg/dL Cholesterol 243(A) 0 - 200 mg/dL HDL 67 >=40 mg/dL LDL Cholesterol 158(A) 0 - 100 mg/dL Blood Venous blood specimen / Unknown Historical Provider LAB BLOOD ORDERABLES Mary l Result * Cervical Cancer Screening: HPV (04/20/2014) [facility] Cervical Cancer Screening: HPV No Interpretation , Abstracted Historical Provider HEALTH MAINTENANCE Final Result * Hepatitis C Screening (07/04/2000) [facility] Hepatitis C Screening abstracted us Historical Provider HEALTH MAINTENANCE Final Result from Last 3 Months or Most Recently Relevant to Health Maintenance Insurance [facility] Care Teams Facilities Operations Technician Relationship Specialty Start Date End Date Jose Reed MD [address] [place] [id number] PCP - General 10/29/01
== END 2025-02-05 08:57 | disposition home or self-care (01) ==
LOC: HO.NEURO 08:56
PROVIDERS: PCP Internal Medicine; Visit Provider Psychiatry & Neurology Neurology
DX: R40.4 Transient alteration of awareness (principal)
CPT/HCPCS: 95819

== ENCOUNTER → 2025-02-05 08:56 | Outpatient (BNV) | payer BC, SELFPAY | PROVIDERS: PCP Internal Medicine; Visit Provider Psychiatry & Neurology Neurology | DX: G25.0 Essential tremor (principal) | CPT/HCPCS: 95816 ==

== ENCOUNTER 2025-02-05 10:14 | Outpatient (RCR) | payer BC, SELFPAY | END 2025-03-08 10:48 | disposition home or self-care (01) | LOC: HO.PT 10:14 | PROVIDERS: PCP Internal Medicine; Visit Provider Student in an Organized Health Care Education/Training Program | DX: N39.3 Stress incontinence (female) (male) (principal) | CPT/HCPCS: 97110; 97112; 97140; 97162 ==

== ENCOUNTER 2025-02-09 14:02 | Outpatient (AMB) | payer BC, SELFPAY ==
--- NOTE | 2025-02-09 14:13 | MHC.OFFVIS ---
Intake Visit Reasons: results Allergies acetaminophen (From Percocet) Allergy (Verified 02/04/25 18:41) Unknown codeine Allergy (Verified 02/04/25 18:41) Unknown oxycodone (From Percocet) Allergy (Verified 02/04/25 18:41) Unknown Penicillins Allergy (Verified 02/04/25 18:41) Unknown Medication List - Last Reconciled 02/09/25 by Aris Howe MD bupropion HCl XL 150 mg PO QAM bupropion HCl XL 300 mg PO BEDTIME citalopram 20 mg PO DAILY cyclobenzaprine 5 mg PO TID PRN ibuprofen 800 mg PO Q8H PRN lisdexamfetamine (Vyvanse) 70 mg PO QAM propranolol 60 mg PO DAILY HPI Comments Details: 49 years old woman with a obesity, micrognathia, obstructive sleep apnea on CPAP, depression, anxiety, 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 CPAP machine had been adjusted in an EEG was obtained to rule out possibility of seizure disorder [facility] Medical History (Updated 02/09/25 @ 14:17 by Aris Howe MD) ADHD Anxiety Depression Familial tremor Review of Systems Const Details: Constitutional:?No fever, chills, fatigue, weight loss, or night sweats. HEENT:?No headache, vision changes, hearing loss, nasal congestion, sore throat. Neurological:? Complain of tremor and dizziness Psychiatric:?No anxiety, depression, mood swings, sleep disturbance, or hallucinations. Endocrine:?No heat/cold intolerance, polydipsia, polyuria, or hair/skin changes. Hematologic/Lymphatic:?No easy bruising, bleeding, or lymphadenopathy. Integumentary (Skin):?No rash, lesions, itching, or color changes. ? Physical Exam Neuro Other: Mental Status: Alert and oriented to person, place, and time. Normal attention. Normal spontaneous speech, fluency, and comprehension. No obvious issues with mood and memory. Affect is appropriate. Cranial Nerves: CN II: Visual mott full to confrontation, visual acuity intact. CN III, IV, : Pupils equal, round, reactive to light and accommodation. Extraocular movements are normal. CN V: Facial sensation is normal. CN VII: Facial movements symmetrical. CN VIII: Hearing intact to bedside conversation is normal. CN IX, X: Palate elevates symmetrically. CN XI: Shoulder shrug and head turn symmetrical. CN XII: Tongue midline without atrophy or fasciculations. Extrapyramidal: Full facial expressions and blinking. No rigidity. Movements are appropriate with no tremor or abnormality. Speech: Normal; no dysarthria or tremor. Assessment & Plan Assessment & Plan (1) Familial tremor: Comment: EEG in off in January 2025: WNL Code(s): G25.0 - Essential tremor Category: Medical Plan Impression: Familial hand tremor Rec: Propranalol 20mg daily Medications: New propranolol 60 mg PO DAILY 90 tabs 3RF Coding Level of Care Code Est Pt Level 4 (25740) Diagnoses Familial tremor G25.0
--- OUTSIDE RECORDS SUMMARY | 2025-02-09 15:21 | XMS_ITS | Data Portability ---
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 Plan of Treatment Reminders Order Date Submit Date Provider Last Modified By Organization Details Last Modified Time Details Appointments None recorded. Lab cytology report, thin prep, smear or scraping, cervical or vaginal 2023 024 URSULA [facility] (Centralized Electronic Ordering - All Locations), Patient Can Go To The Location Of Their Choice, [id number] 4 18:05:47 hemoglobi n, gastroint estinal, stool 2023 024 elie In-Office Order, Internal Use Only DO Not Attach Compendium DO Not Attach Compendium, Do Not Delete/merge, [id number] 4 11:59:09 biopsy, vulva 2019 020 obed [facility], Cytopathology Service, [address] [place] [address], [address], 0 07:12:39 pap test, thinprep, cervical 2019 020 obed [facility], Cytopathology Service, [address] [place] [address], [address], 0 07:32:46 fecal occult blood, stool 2019 020 obed In-Office Order, Internal Use Only DO Not Attach Compendium DO Not Attach Compendium, Do Not Delete/merge, [id number] 0 07:32:46 pap test, thinprep, cervical 2018 019 [facility], Cytopathology Service, [address], [place], [address], 9 16:55:37 fecal occult blood, stool 2018 019 obed In-Office Order, Internal Use Only DO Not Attach Compendium DO Not Attach Compendium, Do Not Delete/merge, [id number] 9 07:33:37 Referral urologist referral 2023 024 obed Reed MD, [address] [facility], [facility] [address], [place], [address], 5 07:30:14 Procedures biopsy, vulva (PROC) 2019 020 obed In-Office Order, Internal Use Only DO Not Attach Compendium DO Not Attach Compendium, Do Not Delete/merge, [id number] 0 07:21:18 Surgeries None recorded. Imaging None recorded. Medication Orders None recorded. Patient TargetsNo targets recorded. Patient Instructions Encounter Date Encounter Id Patient Instructions Last Modified By Organization Details Last Modified Time 08/22/2018 [id number] She is here for annual exam. She [...] questions answered. 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 Menses are regular. Partner has a vasectomy now. Seh has had generalized pain in ehr legs, knees, etc. Her DILLON was elevated. She saw a corporate controller in [place] and she didn't think it was anything [...] in detail. Not available 09/23/2019 11:35:52 02/16/2020 [id number] vulvar biopsy education Not available 02/16/2020 15:47:42 She is here for removal of a large, polypoid fleshy mass of the vulva which is swollen and tender. the mass was removed, it required 2 sutures, was friable. Post procedure care discussed. 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 Menses are regular. Partner has a vasectomy now. Can has had generalized pain in ehr legs, knees, etc. Her DILLON was elevated. She saw a corporate controller in [place] and she didn't think it was anything [...] the breast. Not available 05/20/2024 11:08:13 12/09/2024 [id number] menopause education Not kahlil ilable 12/09/2024 11:48:48 [...] DO Not Attach Compendium, Do Not Delete/merge, [id number] 09/23/2019 11:08:31 08/22/19 19 08/22/2018 fecal occul t blood , stool Occult Blood negati ve Not Available In-Office Order Internal Use Only DO Not Attach Compendium DO Not Attach Compendium, Do Not Delete/merge, [id number] 08/22/2018 10:11:10 08/22/19 19 08/22/2018 pap, LB [id number] ThinP rep Pap, Image d: NEGAT PRATIBHA [...] ASCUS . LPS neg, z12.4 Not Available [facility], Cytopathology Service [address] [place], [address], 08/25/2018 16:55:36 09/23/19 20 09/23/2019 pap, LB [id number] ThinP rep Pap, Image d: NEGAT PRATIBHA [...] NEG [Z12. 4, Z01.4 19] Not Available [facility], Cytopathology Service [address] [place], [address], 09/25/2019 13:20:59 02/16/20 20 02/16/2020 biops y, [...] . [place] Physi cians : NICO VELEZ/ [phone] Not Available [facility], Cytopathology Service [address] [facility], [place], [address], 02/18/2020 17:56:04 05/20/2005/26/2024 IGP, RFX APTIM A HPV ASCU diagnosis: Jaime MCKINNON FOR INTRA EPITH ELIAL LESJEAN N OR JEN PALOMARES . Not Available [facility] ([facility]) [address] [place], [address], 05/26/2024 18:05:46 05/20/2005/26/2024 IGP, RFX APTIM A HPV ASCU specimen adequacy: Jaime reddy Satis facto aminata for evalu ation . Not Available [facility] ([facility]) [address] [place], [address], 05/26/2024 18:05:46 05/20/2005/26/2024 IGP, RFX APTIM A HPV ASCU clinician provided ICD10: Jaime reddy Z01.4 19 Not Available [facility] ([facility]) [address] [place], [address], 05/26/2024 18:05:46 05/20/2005/26/2024 IGP, RFX APTIM A HPV ASCU performed by: Jaime High , Laurent reddy (ASCP ) Not Available [facility] ([facility]) [address] [place], [address], 05/26/2024 18:05:46 05/20/2005/26/2024 IGP, RFX APTIM A HPV ASCU . . Not Available [facility] ([facility]) [address] [place], [address], 05/26/2024 18:05:46 05/20/2005/26/2024 IGP, RFX APTIM A [...] ts do occur . Not Available [facility] ([facility]) [address] [facility], [place], [address], 05/26/2024 18:05:46 05/20/2005/26/2024 IGP, RFX APTIM A HPV ASCU test methodology: Commen t This liqui d based ThinP rep(R ) pap test was scree manuel with the use of an image guide d syste m. Not Available [facility] ([facility]) [address] [facility], [place], [address], 05/26/2024 18:05:46 05/20/2005/26/2024 IGP, RFX APTIM A HPV ASCU . Commen t The HPV DNA refle x crite arley were not met with this speci men resul t there fore, no HPV testi ng was perfo rmed. Not Available [facility] ([facility]) [address] [facility], [place], [address], 05/26/2024 18:05:46 05/21/2005/21/2024 hemog lobin , gastr ointe maury l, stool Occult Blood negati ve Not Available In-Office Order Internal Use Only DO Not Attach Compendium DO Not Attach Compendium, Do Not Delete/merge, [id number] 05/20/2024 10:46:54 Result Notes None recorded. Problems Name Problem SNOMED Code Status Onset Date Resolution Date Notes Provider Name and Address Organization Details Recorded Time Abdominal pain 68245599 Active Shruthi Arcos MD [address], [place], [address], [place] [facility], 5 16:42:03 Personal history of primary malignant neoplasm of breast 279396738 Active 2007 triple negative Shruthi Arcos MD [address], [place], [address], [place] [facility], 5 16:28:30 Family problems 635863759 Active 2015 2016- her 13 year old daughter had a benign tumor of the jaw and had her entire lower left jaw removed and a fibula transplan t. Shruthi Arcos MD [address], [place], [address], [place] [facility], 8 10:54:56 Nausea 265095175 Active 2017 Shruthi Arcos MD [address], [place], [address], [place] [facility], 8 10:44:27 Premenstrua l dysphoric disorder 616733 Active 2017 Shruthi Arcos MD [address], [place], [address], [place] [facility], 8 09:51:50 Urinary incontinenc e 192756795 Active 2023 Shruthi Arcos MD [address], [place], [address], [place] [facility], 4 11:05:22 Problem Notes None recorded. Procedures Surgical History Date Name Laterality Status Provider Name and Address Organization Details Recorded Time 02/16/20 20 Vulvar Biopsy completed Shruthi Arcos MD [address], [place], [address], [place] [facility], 02/16/2020 15:49:19 08/27/19 18 IUD Removal completed Shruthi Arcos MD [address], [place], [address], [place] [facility], 08/27/2017 11:16:45 07/29/19 08 Mastectomy completed Shruthi Arcos MD [address], [place], [address], [place] [facility], 05/22/2016 09:15:01 07/29/19 08 Breast Implants completed Patricia Aliciawor [place] - [facility], 03/07/2015 14:53:24 07/29/19 04 Appendectomy completed Patricia Meckennyywor [place] - [facility], 03/07/2015 14:53:24 07/29/18 91 Tonsillectomy completed Patricia Meckennyywor [place] [facility], 03/07/2015 14:53:24 Imaging Results None recorded. Procedure Notes None recorded. Medical Equipment None Reported. Allergies Allergen ID Allergen Name Allergen Category Reaction Reaction Severity Criticality Documentation Date Start Date Code Code System Note Provider Name and Address Organization Details Recorded Time 13746 Product containin g penicilli n (product) medicatio n rash Not available Not available 03/07/2015 50730 8001 SNOMED Patricia Meczywor null [place] [facility], 5 14:53:24 86347 codeine medicatio n vomiting Not available Not available 03/07/2015 2670 RxNorm Patricia Meczywor null [place] [facility], 5 14:53:24 73995 acetamino phen / oxycodone medicatio n vomiting Not available Not available 03/07/2015 75160 3 RxNorm Patricia Meczywor null, [place] [facility], 5 14:53:24 Medications Name Sig Start Date [...] Updated DateTime 08/22/2018 161.29 cm 36.6 kg/m2 61644.4 g 90 /min 126/67 mm[Hg] Patricia Malloy in [facility], 08/22/2018 10:09:12 Date Recorded Body weight Body mass index (BMI) Body height Heart rate Systolic And Diastolic Provider Name and Address Organization Details Last Updated DateTime 09/23/2019 514857.1 g 38.3 kg/m2 162.56 cm 80 /min 120/69 mm[Hg] Patricia Mcpherson [place] - [place] [facility], 09/23/2019 11:01:26 Date Recorded Body height Body mass index (BMI) Body weight Body temperature Heart rate Systolic And Diastolic Provider Name and Address Organization Details Last Updated DateTime 5 161.29 cm 44.5 kg/m2 499812. 49 g 97.3 [degF] 94 /min 153/79 mm[Hg] Patricia Mcpherson [place] - [facility], 5 10:07:49 Date Recorded Body height Body temperature Body mass index (BMI) Body weight Heart rate Systolic And Diastolic Provider Name and Address Organization Details Last Updated DateTime 0 162.56 cm 98.1 [degF] 38.4 kg/m2 753123. 69 g 90 /min 123/77 mm[Hg] Patricia Mcpherson [place] - [place] [facility], 0 15:33:22 Date Recorded Body weight Body mass index (BMI) Body height Body temperature Heart rate Systolic And Diastolic Provider Name and Address Organization Details Last Updated DateTime 4 082417. 5 g 43.4 kg/m2 161.29 cm 97.9 [degF] 99 /min 143/63 mm[Hg] Patricia Mcpherson [place] - [facility], 4 10:39:34 Social History Question Answer Notes LastModified by Organizat ion Details LastModified Time Tobacco Smoking Status Never Smoker Not Available [facility] 05/31/2020 03:19:41 How Many Years Have You Consumed Alcohol? 30 Information not available 05/20/2024 What Is Your Level Of Caffeine Consumption? Moderate [id number] Information not available 05/31/2020 In The 14 [...] Type Of Diet Are You Following? REGULAR [id number] Information n ot available 05/31/2020 Which Illicit Or Recreational Drugs Have You Used? No [id number] Information not available 05/31/2020 Do You Reside In Or Have You Traveled To An Area Where Ebola Virus Transmission Is Active? No [id number] Information not available 05/31/2020 Education 4 Year College Information not available 03/07/2015 What Is The Highest Grade Or Level Of School You Have Completed Or The Highest Degree You Have Received? [id number] Information not available 05/20/2024 Who Is Your Employer? [employer] Information not available 05/20/2024 How Many Days [...] available 05/20/2024 Are You Sexually Active? Yes [id number] Information not available 05/31/2020 How Much Tobacco Do You Smoke? No [id number] Information not available 05/31/2020 General Stress Level [...] is your level of alcohol consumption? Occasional [id number] Information not available 05/31/2020 Do you or have you ever used smokeless tobacco? Never used smokeless tobacco [id number] Information not available 05/31/2020 Are you currently employed? 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 Information not available 05/20/2024 Do you or have you ever used e-cigarettes or vape? Never used electronic cigarettes [id number] Information not available 05/31/2020 What is your exercise level? Occasional [id number] Information not available 05/31/2020 Mental Status Question Answer Note LastModified by Organization D etails LastModified Time Do you feel stressed (tense, restless, nervous, or anxious, or unable to sleep at night)? [id number] Information not available 05/20/2024 Family History Relationship [...] for MyRisk panel N Autoimmune Condition Y Thyroid Problems N Kidney or Bladder Problems N GI Problems Y Lung Disease N Depression N Defects or Inherited Disease N History of Ovarian Cancer N Anemia N History of Breast Cancer Y KEL exposure N BRCA testing in past Y Osteopenia N Psychiatric Illness N Anxiety Disorder N Diabetes N Arthritis Y Headaches or Migraines N Infertility N Asthma N History of Cancer N Endometriosis N Hepatitis N Heart Disease N Hypertension [...] Patricia Meczywor sunday [place] Diaz Malloy in [facility], 05/20/2024 10:38:59 Influenza, split virus, trivalent, preservative 2 completed Patricia JENI Chisholm in [facility], 05/20/2024 10:38:59 Influenza, split virus, trivalent, preservative 8 completed JENI Garner in [facility], 05/20/2024 10:38:59 Td (adult), 2 Lf tetanus toxoid, preservative free, adsorbed 7 completed JENI Garner in [facility], 05/20/2024 10:38:59 Past Encounters Encounter ID Performer Location Encounter Start Date Encounter Closed Date Diagnosis/Indication Diagnosis SNOMED-CT Code Diagnosis ICD10 Code Diagnosis Note [id number] MD SHRUTHI Hyatt MD [address] [place] [address],[address] [address] 03/07/2015 14:30:28 03/08/2015 08:55:54 Abdominal pain 54575193 [id number] MD SHRUTHI Hyatt MD [address] [place] [address], [address] [address] 04/26/2015 10:00:05 04/26/2015 11:44:08 Specialized medical examination 90201921 Screening for malignant neoplasm of rectum 374436806 [id number] MD SHRUTHI Hyatt MD [address] [place] [address],[address] [address] 05/22/2016 08:49:53 05/22/2016 11:40:16 Specialized medical examination 62966860 Z01.419 Screening for malignant neoplasm of rectum 857937646 Z12.12 Screening mammography 24 410697 Z12.31 Personal h istory of primary malignant neoplasm of breast 452857323 Z85.3 [id number] MD SHRUTHI Hyatt MD [address] [place] [address], [address] [place] [id number] 08/22/2017 09:46:21 08/22/2017 12:59:50 Specialized medical examination 65107201 Z01.419 Screening for malignant neoplasm of rectum 000925623 Z12.12 Personal h istory of primary malignant neoplasm of breast 128610802 Z85.3 [facility] 856326723 R11.0 [id number] MD SHRUTHI Hyatt MD [address] [place] [address],[address] [facility] [address] 08/27/2017 10:43:14 08/27/2017 11:29:49 Removal of intrauterine device 61683886 Z30.432 [id number] MD SHRUTHI Hyatt MD [address] [place] [address],[address] [facility] [address] 12/24/2017 10:07:23 12/24/2017 12:14:53 Premenstrual dysphoric disorder 171710 F32.81 Personal h istory of primary malignant neoplasm of breast 186908205 Z85.3 Family problems 15793071 4 Z63.79 [id number] MD SHRUTHI Hyatt MD [address] [place] [address], [place] [address] 03/06/2018 09:28:17 03/06/2018 11:15:42 Premenstrual dysphoric disorder 870168 F32.81 Personal h istory of primary malignant neoplasm of breast 400631239 Z85.3 Family problems 90548684 4 Z63.79 [id number] MD SHRUTHI Hyatt MD [address] [place] [address], [address] [facility] [id number] 08/22/2018 09:32:17 08/22/2018 13:26:06 Specialized medical examination 09227434 Z01.419 Screening for malignant neoplasm of rectum 791082847 Z12.12 Personal h istory of primary malignant neoplasm of breast 164744828 Z85.3 [id number] MD SHRUTHI Hyatt MD [address] [place] [address], [place] [id number] 09/23/2019 10:44:40 09/24/2019 12:51:04 Specialized medical examination 73412989 Z01.419 Screening for malignant neoplasm of rectum 184574736 Z12.12 [id number] MD SHRUTHI Hyatt MD [address] [place] [address],[place] [address] 02/16/2020 15:28:59 02/16/2020 15:57:02 Pruritus of vulva 46829438 L29.2 [id number] MD SHRUTHI Hyatt MD [address] [facility] [place] [address] 05/20/2024 10:35:19 05/20/2024 11:58:53 Specialized medical examination 02204528 Z01.419 Screening for malignant neoplasm of rectum 747930052 Z12.12 Personal h istory of primary malignant neoplasm of breast 562432917 Z85.3 Urinary incontinence 165 739549 R32 [id number] MD SHRUTHI Hyatt MD [address] [facility] [place] [address] 12/09/2024 10:03:39 12/09/2024 11:54:22 Menopausal symptom 00409286 N95.1 Health Concerns Section Related Observation LastModified by Organization Detai ls LastModified Time None Recorded Concern Status LastModified by Organization Details LastModified Time None Recorded Advance Directives Directive None Recorded Payers Insurance Date Sequence Insurance Name Policy Number Policy Fuentes Covered Member ID Fuentes Member ID Guarantor Name 09/23/2019 1 [facility]: [employer] IDA - DEDUCTIBLE (O) [id number] Mandi Jha [id number] Mandi Jha 12/08/2024 1 [facility]: [id number] (O) [id number] Tommy Jha [id number] Mandi Jha Notes Date Note Type [...] for IUD removal. 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 Menses are regular. Partner has a [...] negative breast cancer. Shruthi Arcos MD [address] [facility],[address], [place], [address], [place] [facility], 09/24/2019 12:21:19 02/16/2020 text/html She is here for removal of a large, polypoid fleshy mass of the vulva which is swollen and tender Shruthi Arcos MD [address], [place], [address], [place] [facility], 02/16/2020 15:50:08 05/20/2024 text/html She is here for annual, has not been here in 4 years. History of bilateral mastectomy for triple negative breast cancer. She was BRCA negative in 2007 but has not had additional panel done. 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 Menses are regular. Partner has a vasectomy now.Can has had generalized pain in ehr legs, knees, etc. Her DILLON was elevated. She saw a corporate controller in [place] and she didn't think it was anything specific but she is going to go for vascular testing. Shruthi Arcos MD [address], [place], [address], [place] [facility], 05/20/2024 11:09:41 12/09/2024 text/html She is here [...] MD [address], [place], [address], [place] [facility], 12/09/2024 11:51:44 OBGyn Episode No OBEpisode recorded.
--- OUTSIDE RECORDS SUMMARY | 2025-02-09 15:21 | XMS_ITS | Clinical Summary ---
Author Organization [facility] Address [address] [place] [phone] Phone Care Team Providers Care Platen Drier Operator Name Role Phone Jose Reed MD Primary Care Provider [phone] Allergies Active Allergy Reactions Criticality Noted Date [...] if needed for muscle spasms. 30 tablet 5 Active ergocalciferol (VITAMIN D-2) 1,250 mcg (50,000 unit) capsuleIndicati ons:Vitamin D deficiency Take 1 capsule (50,000 Units total) by mouth 1 (one) time per week. 12 capsule 5 05/03/20 25 Active Active Problems Problem Noted Date Diagnosed Date Dyslipidemia 01/12/2025 Morbid obesity with BMI of 4 0.0-44.9, adult ([facility] V24, [facility] V28) 07/20/2024 MARIE (obstructive sleep apnea) 11/18/2022 Venous insufficiency (chronic) (peripheral) 01/27 Overview (07/20/2024): Follows with Vascular (yoseph) Depression 12/04/2018 Osteoarthritis of right knee 12/04/2018 ADHD (attention deficit hyperactivity disorder) 06/19/2013 SOB (shortness of breath) 01/19/2013 Allergic rhinitis 12/13/2005 Encounters Date Type Department Care Team Description 02/04/2025 Telephone Adult Medicine [address] [phone] Jose Reed MD Referral (Neurology Insurance Referral) 01/12/2025 4:30 PM EDT Office Visit Adult Medicine [address] [phone] Scarlet Gabriel, CORRECTIONAL SERGEANT Morbid obesity with BMI of 40.0-44.9, adult ([facility] V24, [facility] V28) (Primary Dx); Other fatigue; MARIE (obstructive sleep apnea); Neck pain, acute; Dyslipidemia; Vitamin D deficiency from Last 3 Months Immunizations Name Administration [...] surgery TONSILLECTOMY PROCEDURE: HISTORICAL TONSILLECTOMY APPENDECTOMY PROCEDURE: VT APPENDECTOMY OTHER SURGICAL HISTORY 12/09/2013 PROCEDURE: IMPLANT BREAST SILICONE/EQ ESOPHAGOGASTRODUODENOSCOPY 01/21/15 PROCEDURE: VT ESOPHAGOGASTRODUODENOSCOPY TRANSORAL DIAGNOSTIC; COMMENT: normal ESOPHAGOGASTRODUODENOSCOPY 07/07/15 RONALDO De Los Santos PROCEDURE: VT ESOPHAGOGASTRODUODENOSCOPY TRANSORAL DIAGNOSTIC; COMMENT: normal Medical History [...] care for your loved ones. For example, child development director or elderly care for an older adult? [...] 3:30 PM EDT Office Visit Adult Medicine [facility] [address] [place] [phone] Jose Reed MD [address] [place] [address] 08/26/2025 3:30 PM EST Consult Bariatric Surgery - [place] [address] [phone] Didier Marquez MD [address] [address] Health Maintenance Due Date Last Done Comments [...] Procedure Name Priority Date/Time Associated Diagnosis Comments CBC WITH AUTO DIFFERENTIAL Routine 02/05/2025 9:17 AM EDT Morbid obesity with BMI of 40.0-44.9, adult (CMS/HCC V24, CMS/HCC V28) Other fatigue THYROID STIMULATING HORMONE WITH REFLEX TO FREE T4 AND FREE T3 Routine 02/05/2025 9:17 AM EDT Morbid obesity with BMI of 40.0-44.9, adult (CMS/HCC V24, CMS/HCC V28) Other fatigue FERRITIN Routine 02/05/2025 9:17 AM EDT Morbid obesity with BMI of 40.0-44.9, adult (CMS/HCC V24, CMS/HCC V28) Other fatigue IRON AND TIBC Routine 02/05/2025 9:17 AM EDT Morbid obesity with BMI of 40.0-44.9, adult (CMS/HCC V24, CMS/HCC V28) Other fatigue FOLATE Routine 02/05/2025 9:17 AM EDT Morbid obesity with BMI of 40.0-44.9, adult (CMS/HCC V24, CMS/HCC V28) Other fatigue VITAMIN B12 Routine 02/05/2025 9:17 AM EDT Morbid obesity with BMI of 40.0-44.9, adult (CMS/HCC V24, CMS/HCC V28) Other fatigue VITAMIN D 25 HYDROXY Routine 02/05/2025 9:17 AM EDT Morbid obesity with BMI of 40.0-44.9, adult (CMS/HCC V24, CMS/HCC V28) Other fatigue COMPREHENSIVE METABOLIC PANEL Routine 02/05/2025 9:17 AM EDT Morbid obesity with BMI of 40.0-44.9, adult (CMS/HCC V24, CMS/HCC V28) Other fatigue CBC AND DIFFERENTIAL Routine 02/05/2025 9:17 AM EDT Morbid obesity with BMI of 40.0-44.9, adult (CMS/HCC V24, CMS/HCC V28) Other fatigue LIPID PANEL Routine 11/19/2022 HPV Routine 04/20/2014 HEPATITIS C SCREENING Routine 07/04/2000 from Last 3 Months or Most Recently Relevant to Health Maintenance Results * Thyroid stimulating hormone with reflex to free t4 and free t3 (02/05/2025 9:17 AM EDT) [facility] Signature TSH 1.54 0.40 - 4.00 mcIU/mL LAB CHEMISTRY METHOD 02/05/2025 11:33 AM EDT [facility] Blood Venous blood specimen / Unknown Venipuncture / Unknown 02/05/2025 9:17 AM EDT 02/05/2025 9:17 AM EDT us Scarlet Gabriel CORRECTIONAL SERGEANT LAB BLOOD ORDERABLES Final Re sult [facility] [address] [place] [address], [place] [phone] * (ABNORMAL) CBC auto differential (02/05/2025 9:17 AM EDT) WBC 7.3 4.8 - 10.8 K/mcL LAB HEMETOLOGY METHOD 02/05/2025 10:03 AM EDT [facility] RBC 4.40 3.80 - 4.80 M/mcL LAB HEMETOLOGY METHOD [facility] Hemoglobin 12.9 11.5 - 16.0 g/dL LAB HEMETOLOGY METHOD 02/05/2025 10:03 AM EDT [facility] Hematocrit 40.8 35.0 - 47.0 % LAB HEMETOLOGY METHOD 02/05/2025 10:03 AM EDT [facility] MCV 92.7 79.0 - 98.0 FL LAB HEMETOLOGY METHOD 02/05/2025 10[facility] MCH 29.3 27.0 - 32.0 pcg LAB HEMETOLOGY METHOD 02/05/2025 10:03 AM [facility] MCHC 31.6(L) 32.0 - 37.0 g/dL LAB HEMETOLOGY METHOD 02/05/2025 10:03 AM EDT [facility] RDW 12.8 11.0 - 15.0 % LAB HEMETOLOGY METHOD 02/05/2025 10:03 AM [facility] Platelets 349 130 - 400 K/mcL LAB HEMETOLOGY METHOD 02/05/2025 10:03 AM EDT [facility] MPV 11.3(H) 7.0 - 11.0 FL LAB HEMETOLOGY METHOD 02/05/2025 10:03 AM [facility] NRBC 0.0 <1.0 % LAB HEMETOLOGY METHOD 02/05/2025 10:03 AM [facility] NRBC Absolute 0.00 <0.10 K/mcL LAB HEMETOLOGY METHOD 02/05/2025 10:03 AM [facility] Neutrophils Relative 72.3 % LAB HEMETOLOGY METHOD 02/05/2025 10:03 AM [facility] Lymphocytes Relative 18.5 % LAB HEMETOLOGY METHOD 02/05/2025 10:03 AM [facility] Monocytes Relative 6.4 % LAB HEMETOLOGY METHOD 02/05/2025 10:03 AM [facility] Eosinophils Relative 1.9 % LAB HEMETOLOGY METHOD 02/05/2025 10:03 AM [facility] Basophils Relative 0.5 % LAB HEMETOLOGY METHOD 02/05/2025 10:03 AM [facility] Immature Granulocytes Relative 0.4 % LAB HEMETOLOGY METHOD 02/05/2025 10:03 AM [facility] Neutrophils Absolute 5.27 1.50 - 7.00 K/mcL LAB HEMETOLOGY METHOD 02/05/2025 10:03 AM [facility] Lymphocytes Absolute 1.35 1.00 - 5.00 K/mcL LAB HEMETOLOGY METHOD 02/05/2025 10:03 AM [facility] Monocytes Absolute 0.47 0.20 - 1.00 K/mcL LAB HEMETOLOGY METHOD 02/05/2025 10:03 AM [facility] Eosinophils Absolute 0.14 0.00 - 0.50 K/mcL LAB HEMETOLOGY METHOD 02/05/2025 10:03 AM EDT [facility] Basophils Absolute 0.04 0.00 - 0.20 K/mcL LAB HEMETOLOGY METHOD 02/05/2025 10:03 AM EDT [facility] Immature Granulocytes Absolute 0.03 0.00 - 0.03 K/mcL LAB HEMETOLOGY METHOD 02/05/2025 10:03 AM EDT [facility] Blood Venous blood specimen / Unknown Venipuncture / Unknown 02/05/2025 9:17 AM EDT 02/05/2025 9:17 AM EDT Scarlet Gabriel NP LAB BLOOD ORDERABLES Final Re sult Performing Organization Address [facility]/ZIP Co de Phone Number [facility] [address] [place] [address], [place] [phone] * Iron and TIBC (02/05/2025 9:17 AM EDT) Pathologist [facility] Iron 89 40 - 150 mcg/dL LAB CHEMISTRY METHOD 02/05/2025 10:44 AM EDT [facility] TIBC 349 250 - 450 mcg/dL LAB CHEMISTRY METHOD 02/05/2025 10:44 AM EDT [facility] Iron Saturation 26 15 - 50 % LAB CHEMISTRY METHOD 02/05/2025 10:44 AM EDT [facility] Blood Venous blood specimen / Unknown Venipuncture / Unknown 02/05/2025 9:17 AM EDT 02/05/2025 9:17 AM EDT us Scarlet Gabriel NP LAB BLOOD ORDERABLES Final Re sult [facility] [address] [place] [address], [place] [phone] * (ABNORMAL) Vitamin D 25 hydroxy (02/05/2025 9:17 AM EDT) Vit D, 25-Hydroxy 12.9(L) 30.0 - 80.0 ng/mL LAB CHEMISTRY METHOD 02/05/2025 11:32 AM EDT [facility] Blood Venous blood specimen / Unknown Venipuncture / Unknown 02/05/2025 9:17 AM EDT 02/05/2025 9:17 AM EDT us Scarlet Gabriel CORRECTIONAL SERGEANT LAB BLOOD ORDERABLES Final Re sult Performing Organization Address City/[facility]/ZIP Co de Phone Number [facility] [address] [place] [address], [place] [phone] * Folate (02/05/2025 9:17 AM EDT) [facility] Folate 11.1 2.8 - 17.0 ng/ml LAB CHEMISTRY METHOD 02/05/2025 10:44 AM EDT [facility] Blood Venous blood specimen / Unknown Venipuncture / Unknown 02/05/2025 9:17 AM EDT 02/05/2025 9:17 AM EDT us Scarlet Gabriel CORRECTIONAL SERGEANT LAB BLOOD ORDERABLES Final Re sult Performing Organization Address [facility]/ZIP Co de Phone Number [facility] [address] [place] [address], [place] [phone] * Ferritin (02/05/2025 9:17 AM EDT) [facility] Ferritin 77 8 - 252 ng/mL LAB CHEMISTRY METHOD 02/05/2025 10:44 AM EDT [facility] Blood Venous blood specimen / Unknown Venipuncture / Unknown 02/05/2025 9:17 AM EDT 02/05/2025 9:17 AM EDT us Scarlet Gabriel CORRECTIONAL SERGEANT LAB BLOOD ORDERABLES Final Re sult [facility] [address] [place] [address], [place] [phone] * Vitamin B12 (02/05/2025 9:17 AM EDT) [facility] Vitamin B-12 385 250 - 900 pcg/mL LAB CHEMISTRY METHOD 02/05/2025 10:44 AM EDT [facility] Blood Venous blood specimen / Unknown Venipuncture / Unknown 02/05/2025 9:17 AM EDT 02/05/2025 9:17 AM EDT Scarlet Gabriel CORRECTIONAL SERGEANT LAB BLOOD ORDERABLES Final Re sult [facility] [address] [place] [address], [place] [phone] * Comprehensive metabolic panel (02/05/2025 9:17 AM EDT) [facility] Sodium 135 133 - 145 mmol/L LAB CHEMISTRY METHOD 02/05/2025 10:44 AM [facility] Potassium 4.5 3.5 - 5.5 mmol/L LAB CHEMISTRY METHOD 02/05/2025 10:44 AM [facility] Chloride 102 96 - 110 mmol/L LAB CHEMISTRY METHOD 02/05/2025 10:44 AM [facility] CO2 30 21 - 32 mmol/L LAB CHEMISTRY METHOD 02/05/2025 10:44 AM [facility] Anion Gap 3 3 - 11 LAB CHEMISTRY METHOD 02/05/2025 10:44 AM [facility] Glucose 100 70 - 100 mg/dL LAB CHEMISTRY METHOD 02/05/2025 10:44 AM [facility] BUN 10 5 - 25 mg/dL LAB CHEMISTRY METHOD 02/05/2025 10:44 AM [facility] Creatinine 0.80 0.50 - 1.10 mg/dL LAB CHEMISTRY METHOD 02/05/2025 10:44 AM [facility] eGFR 90 >=60 mL/min/1. 73m2 LAB CHEMISTRY METHOD 02/05/2025 10:44 AM [facility] Comment:Calculation based on the Chronic Kidney Disease Epidemiology Collaboration (CKD-EPI) equation refit without adjustment for race. BUN/Creatinine Ratio 12.5 LAB CHEMISTRY METHOD 02/05/2025 10:44 AM [facility] Calcium 9.3 8.5 - 10.5 mg/dL LAB CHEMISTRY METHOD 02/05/2025 10:44 AM [facility] AST (SGOT) 25 10 - 42 unit/L LAB CHEMISTRY METHOD 02/05/2025 10:44 AM [facility] ALT (SGPT) 42 10 - 60 unit/L LAB CHEMISTRY METHOD 02/05/2025 10:44 AM [facility] Alkaline Phosphatase 109 42 - 121 unit/L LAB CHEMISTRY METHOD 02/05/2025 10:44 AM [facility] Total Protein 7.7 6.0 - 8.0 g/dL LAB CHEMISTRY METHOD 02/05/2025 10:44 AM [facility] Albumin 4.0 3.2 - 5.0 g/dL LAB CHEMISTRY METHOD 02/05/2025 10:44 AM [facility] Total Bilirubin 0.6 0.0 - 1.4 mg/dL LAB CHEMISTRY METHOD 02/05/2025 10:44 AM [facility] Blood Venous blood specimen / Unknown Venipuncture / Unknown 02/05/2025 9:17 AM EDT 02/05/2025 9:17 AM EDT us Scarlet Gabriel CORRECTIONAL SERGEANT LAB BLOOD ORDERABLES Final Re sult [facility] [address] [place] [address], * (ABNORMAL) Lipid panel (11/19/2022) [facility] LDL/HDL Ratio 4 0 - 4 Triglycerides 90 0 - 150 mg/dL Cholesterol 243(A) 0 - 200 mg/dL HDL 67 >=40 mg/dL LDL Cholesterol 158(A) 0 - 100 mg/dL Blood Venous blood specimen / Unknown Historical Provider LAB BLOOD ORDERABLES Mary l Result * Cervical Cancer Screening: HPV (04/20/2014) [facility] Cervical Cancer Screening: HPV No Interpretation , Abstracted [facility] Provider HEALTH MAINTENANCE Final Result * Hepatitis C Screening (07/04/2000) [facility] Hepatitis C Screening abstracted [facility] Provider HEALTH MAINTENANCE Final Result from Last 3 Months or Most Recently Relevant to Health Maintenance Insurance [facility] Care Teams Platen Drier Operator Relationship Specialty Start Date End Date Jose Reed MD [address] [place] [phone] PCP - General 10/29/01
--- OUTSIDE RECORDS SUMMARY | 2025-02-09 15:21 | XMS_ITS | Encounter Summary ---
Author Organization [facility] Address [address] [place] [address] Care Team Providers Care Armhole Baster Hand Name Role Phone Jose Reed MD Primary Care Provider Torie lomeli Encounter Details Date Type Department Care Team (Latest Contact Info) Description 08/21/2020 Lab Requisition [facility] [address] Through [address] [place] [address] [address] [place] [phone] Gregorio Brandon MD [address] [place], [place] [id number] Encounter for laboratory testing for COVID-19 virus [...] Navarro Rojas, Ph.D., Laboratory DirectorTests performed at [facility] Nasopharyngeal swab / Unknown 08/21/2020 12:38 PM EST 08/21/2020 12:38 PM EST [facility]ative [facility] 08/22/2020 4:51 PM EST Performed by [facility] [address] [place] [address], CLIA# [id number] and [place] License# [id number] us Gregorio Brandon MD MICROBIOLOGY - GENERAL ORDER BELLE Final Result [facility] documented in this encounter Visit Diagnoses Diagnosis Encounter for laboratory testing for COVID-19 virus documented in this encounter Care Teams Armhole Baster Hand Relationship Specialty Start Date End Date Jose Reed MD PCP - General 07/01/19 documented as of this encounter
== END 2025-02-09 17:01 | disposition home or self-care (01) ==
LOC: HO.HSM 14:03
PROVIDERS: PCP Internal Medicine; Visit Provider Psychiatry & Neurology Neurology
DX: G25.0 Essential tremor (principal)
CPT/HCPCS: 99214